=== PATIENT | female | born 1965 | race African-American/Black ===

== ENCOUNTER 2017-01-06 07:57 | Emergency (ER) ==
[2017-01-06 08:22] VITALS: BP 176/96
--- NOTE | 2017-01-06 09:24 | Diag Imaging Result Document ---
PROCEDURE NAME: HEAD W/O CONTRAST - 01/06/2017 CT BRAIN WITHOUT: COMPARISON: Compared to 10/12/2016. FINDINGS: No parenchymal hemorrhage. No epidural or subdural hematoma. No subarachnoid hemorrhage. No mass identified on this noncontrasted exam. Old lacunes similar to the prior study. No hydrocephalus. There is mucus within the left sphenoid sinus similar to the prior exam. IMPRESSION: 1. No hemorrhage. 2. Small old infarcts. If clinical suspicion persists an MRI may be beneficial.
--- NOTE | 2017-01-06 09:47 | PROVIDER DOCUMENTATION ---
Addendum entered and electronically signed by Darshana Beltran MD 01/06/17 13:59: Additional Progress - ADDITIONAL PLAN OF CARE/RESULTS Additional Progress/Plan/Lab Results: Pt reports her L side was paralyzed with off and on RUE and RLE swelling/ numbness/tingling together with off and on trouble swallowing since Oct, 2016 due to a stroke. She has been taking her BP meds but her BP has not bee controlled. Pt was eating solid food and drinking water when I walked into her room. She has to use her R arm to move her L arm, but this is normal for her since 10/24. Reports she gained some strength back for RLE recently and she cannot afford rehab even though her PCP recommended it. Reports she has been having cough and SOB since yesterday and this makes her trouble swallowing worse. Pt is in no distress when seen but she sounds like frustrated for her situation. I ordered a full work up including blood work and CT-head CXR etc. Pt left for unknown reason after some of the tests done. Pt did c/o with stating that "Do I need to stay her for half of the day?" Pt has her daughter and a little grandchildren with them when seen at ER. Original Note: HPI-General Adult - General Chief Complaint: General Adult Stated Complaint: LEFT SIDE NUMBNESS/SORE THROAT Time Seen by Provider: 01/06/17 08:41 Source: patient, family Allergies/Adverse Reactions: Patient Allergies Allergy/AdvReac Type Severity Reaction Status Date / Time diclofenac [Diclofenac] Allergy ANAPHYLAXIS Verified 01/06/17 08:23 ibuprofen [From Motrin] Allergy ANAPHYLAXIS Verified 01/06/17 08:23 lisinopril [From Zestril] Allergy SWELLING Verified 01/06/17 08:23 misoprostol Allergy ANAPHYLAXIS Verified 01/06/17 08:23 Penicillins Allergy ANAPHYLAXIS Verified 01/06/17 08:23 Home Medications: Home Medication List Medication Instructions Recorded Confirmed Last Taken Type Esomeprazole [Nexium] 40 mg PO DAILY 10/13/16 10/13/16 Unknown History Fluticasone 50 Mcg Nasal [place] 1 spray RE DAILY 10/13/16 10/13/16 Unknown History [Flonase] Sitagliptin Phosphate [Januvia] 100 mg PO DAILY 10/13/16 10/13/16 Unknown History Tizanidine [Zanaflex] 4 mg PO Q8H PRN PRN 10/13/16 10/13/16 Unknown History ATORVAstatin [Lipitor] 80 mg PO QHS #30 tablet 10/15/16 Unknown Rx Amlodipine [Norvasc] 5 mg PO BID #30 tablet 10/15/16 Unknown Rx Clopidogrel [Plavix] 75 mg PO DAILY #30 tablet 10/15/16 Unknown Rx Losartan [Cozaar] 25 mg PO DAILY #30 tablet 10/15/16 Unknown Rx - History of Present Illness -Gen Adult Nature of Presenting Problems: Pt is a 51 yof with a hx of cva in October pt reports she hasn't been able move her left arm correctly since then and that she has had left arm,neck and hand tightening. Reports left hand swelling intermittently since then. Pt reports she didn't follow up with doctor or rehab due to financial reasons after cva. Pt denies any new weakness. Reports here today bc has been having trouble swallowing since before cva in October but its worse today. Pt reports she has had a recent cold with sinus drainage. Pt is eating jacks and drinking a drink upon exam. pt also reports trouble urinating reports dribbling. Location of Pain/Injury: reports: generalized Quality of Pain: reports: none Severity: reports: moderate Onset/Duration: reports: unsure Timing: reports: still present Similar Symptoms Previously?: Yes Recently seen or treated by another doctor?: Yes Review of Systems - Adult - REVIEW OF SYSTEMS - ADULT Constitutional: denies: chills, fever, fatique Eyes: reports: no symptoms reported Ears, Nose, Mouth & Throat: reports: sinus problem, other (trouble swelling). denies: ear discharge, nose pain, loose teeth Cardiovascular: denies: chest pain, irregular heart rate, orthopnea, syncope Respiratory: reports: no symptoms reported Gastrointestinal: reports: no symptoms reported Genitourinary: reports: hesitency. denies: flank pain, frequent UTI's, hematuria Musculoskeletal: reports: see HPI, muscle weakness. denies: frequent leg cramps , joint pain, joint swelling, neck pain Integumentary: reports: no symptoms reported Neurological: reports: no symptoms reported Psychiatric: reports: no symptoms reported Endocrine: reports: no symptoms reported Hematologic/Lymphatic: reports: no symptoms reported Allergic/Immunologic: reports: no symptoms reported All Other Systems: Reviewed and Negative Past History - Adult - PAST MEDICAL HISTORY-ADULT Review of Records: reports: Nursing Assessment Review Major Childhood Illnesses: reports: denies history Cardiovascular: reports: HTN, hyperlipidemia Respiratory: reports: COPD Gastrointestinal: reports: GERD Obstetrical/Gynecological: reports: denies history Genitourinary: reports: denies history Musculoskeletal: reports: denies history Neurological: reports: CVA Psychiatric: reports: depression Endocrine/Immune: reports: Diabetes Other Conditions: reports: denies history - PRIOR SURGERIES/PROCEDURES Surgical/Procedure History: reports: hysterectomy, BTL - PRIOR HOSPITALIZATIONS Prior Hospitalizations: reports: none - IMMUNIZATION STATUS Childhood Immunizations: See Nurse Assessment Flu Vaccine: See Nurse Assessment - FAMILY HISTORY Family History: reviewed, not pertinent - SOCIAL HISTORY Smoking: cigarettes, less than 1 pack/day Provider spent 3-5 mins advising pt. on dangers of tobacco.: Discussed manners to quit use, and f/u contacts for add'l counseling. Substance Use: none/never Physical Exam-General - PHYSICAL EXAM-ADULT Initial Vital Signs Reviewed: Yes - CONSTITUTIONAL General Appearance: appears well, alert, no apparent distress - EYES Eyes: PERRL/EOMI - HEAD, EARS, NOSE, MOUTH & THROAT HENMT: TMs normal, pharynx normal, other (pt eating jacks swallowing solid food and liquids upon exam) - NECK Neck: full range of motion, supple, normal inspection - RESPIRATORY Respiratory: chest non-tender, lungs clear, normal breath sounds, no pleuratic chest pain, no respiratory distress, no accessory muscle use - CARDIOVASCULAR Cardiovascular: regular rate, rhythm - GASTROINTESTINAL (ABDOMEN) Abdominal Exam: normal bowel sounds, non tender, soft, no organomegaly - MUSCULOSKELETAL Extremity: non-tender, normal capillary refill, swelling (left hand swelling), other (weak yard laborer left hand pt reports this is nothing new since October). negative: pulse deficit, pedal edema - SKIN Integumentary: normal color, normal turgor, warm/dry - NEUROLOGIC Neurologic: grossly normal, motor weakness (left). negative: aphasia, facial droop, focal weakness, sensory deficit - PSYCHIATRIC Psych/Mental Status: normal mood/affect, normal thought content, normal thought process, oriented x 3 Progress - PLAN OF CARE/RESULTS Progress/Plan/Lab Results: Orders Category Date Time Status CHEST-2 VIEWS [RAD] Stat Exams 01/06/17 09:33 Ordered HEAD W/O CONTRAST [CT] Stat Exams 01/06/17 08:41 Draft BNP [PRO B-NATRIURETIC PEPTIDE] Stat Lab 01/06/17 09:34 Ordered CBC WITH DIFF [HEME] Stat Lab 01/06/17 09:33 Ordered COMPREHENSIVE METABOLIC PANEL [CHEM] Stat Lab 01/06/17 09:33 Ordered D-DIMER PL [COAG] Stat Lab 01/06/17 09:[address] Stat Lab 01/06/17 08:[address] Stat Lab 01/06/17 08:32 Completed MAGNESIUM [CHEM] Stat Lab 01/06/17 09:33 Ordered TROPONIN T Stat Lab 01/06/17 09:[address] W/POSS RFLX CULT [URINALYSIS] Stat Lab 01/06/17 09:33 Uncollected Vital Signs - 24 hr 01/06/17 08:15 Temperature 98.3 F Pulse Rate 71 Respiratory 20 Rate Blood Pressure 176/96 O2 Sat by Pulse 96 Oximetry Laboratory Tests 01/06/17 01/06/17 08:32 08:32 Influenza A (Rapid) NEGATIVE Influenza B (Rapid) NEGATIVE Group A Strep Rapid NEGATIVE Pt eloped before cxray and labs were done. - CT/MRI 1 CT Study: Head Impression: Abnormal (no hemm; small old infarcts; if clinical suspicion perisits an MRI may be done) Departure - Departure Time of Disposition Order: 09:44 DIAGNOSIS: Paralysis Trouble swallowing Qualifiers: Dysphagia type: unspecified Qualified Code(s): R13.10 - Dysphagia, unspecified Hypertension Qualifiers: Hypertension type: unspecified secondary hypertension Qualified Code(s): I15.9 - Secondary hypertension, unspecified TIA (transient ischemic attack) Qualifiers: Transient cerebral ischemia type: unspecified Qualified Code(s): G45.9 - Transient cerebral ischemic attack, unspecified Disposition: [place] [id number] Certified Medical Emergency: Emergent Condition: Stable Referrals: [Primary Care Provider] - Attestation - Scribe Verification/Attestation Scribe:: Adela Owen Acting as Scribe for:: Darshana Beltran Scribe documention review:: This chart was documented by a scribe and accurately reflects the service the provider performed and the decisions made by the provider. Physician Attestation - Physician Attestation I, the provider, attest to the following statement:: Darshana Beltran Physician documentation Attestation:: This documentation recorded by the scribe accurately reflects the service I personally performed and the decisions made by me.
== END 2017-01-06 09:50 | disposition left against medical advice (07) ==
LOC: P.ED 07:57
DX: G45.9 Transient cerebral ischemic attack, unspecified (principal); R13.10 Dysphagia, unspecified; G81.94 Hemiplegia, unspecified affecting left nondominant side; I15.9 Secondary hypertension, unspecified; R20.0 Anesthesia of skin; R39.11 Hesitancy of micturition; I10 Essential (primary) hypertension; E78.5 Hyperlipidemia, unspecified; J44.9 Chronic obstructive pulmonary disease, unspecified; K21.9 Gastro-esophageal reflux disease without esophagitis; Z86.73 Personal history of transient ischemic attack (TIA), and cerebral infarction without residual deficits; E11.9 Type 2 diabetes mellitus without complications; F17.210 Nicotine dependence, cigarettes, uncomplicated; Z71.6 Tobacco abuse counseling; Z79.899 Other long term (current) drug therapy; Z79.51 Long term (current) use of inhaled steroids; Z79.02 Long term (current) use of antithrombotics/antiplatelets
CPT/HCPCS: 70450; 87081; 87430; 87804